=== PATIENT | female | born 1975 ===

== ENCOUNTER 2024-02-10 09:45 | Inpatient (IN) | payer OTHER ==
[2024-02-10 11:56] LABS: HEMATOCRIT 42.7 % (36.0-45.00); HEMOGLOBIN 14.7 g/dL (12.0-15.00); MEAN CELL VOLUME 86.7 fL (80.00-100.00); MEAN CORPUSCULAR HEMOGLOBIN 29.8 pg (27.00-32.0); MEAN CORPUSCULAR HGB CONC 34.4 g/dl (32.0-36.0); PLATELET COUNT 332 K/uL (150-450); RED BLOOD COUNT 4.93 M/uL (4.00-6.00); RED CELL DISTRIBUTION WIDTH 14.8 % (11.5-14.5)
[2024-02-10 11:58] LABS: PH,URINE 6.5 (5.0-8.0); URINE APPEARANCE Clear; URINE BILIRRUBIN Negative (NEGATIVE); URINE BLOOD Negative; URINE COLOR Yellow; URINE GLUCOSE Negative (NEGATIVE); URINE LEUKOCYTE Negative; URINE NITRATE Negative; URINE PROTEIN Negative (NEGATIVE); URINE UROBILINOGEN 0.2 E.U./dl
[2024-02-10 12:04] LABS: URINE BACTERIA 298.5 uL (0.0-1933); URINE EPITHELIAL CELLS 15.4 uL (0.0-38.8); URINE RBC 5.3 uL (0.0-20.8)
[2024-02-10 12:45] LABS: ALBUMIN 4.2 gm/dL (3.4-5.0); BILIRUBIN TOTAL 0.27 mg/dL (0.3-1.2); CALCIUM 9.4 mg/dL (8.5-10.1); CREATININE SERUM 0.59 mg/dL (0.55-1.02); GFR 107.89; GLOBULINA 3.1 G/DL (2.4-3.5); POTASSIUM 3.86 mEq/L (3.5-5.1); TOTAL PROTEIN 7.3 gm/dL (6.4-8.2)
[2024-02-10 12:55] LABS: INR 0.99; PARTIAL THROMBOPLASTIN TIME 31.9 SECONDS (22.0-34.0); PROTHROMBIN TIME 10.4 SECONDS (9.0-11.5)
[2024-02-19] MEDS ORDERED: CEFAZOLIN SODIUM 1,000 MG VIAL ONE ×2 (17:28→21:33)
[2024-02-19] MEDS ORDERED: THROMBIN,HU/FIBRINOGEN/CALCIUM 4 ML SYRINGE TOP ONE ×2 (18:07→18:45)
[2024-02-19] MEDS ORDERED: CEFAZOLIN SODIUM 1,000 MG VIAL IV ONE (18:15)
[2024-02-19] MEDS ORDERED: ONDANSETRON HCL 2 MG/ML VIAL IV PRN (19:30)
[2024-02-19] MEDS ORDERED: RINGERS SOLUTION,LACTATED 1,000 ML IV SCH (19:30)
[2024-02-19] MEDS ORDERED: MORPHINE SULFATE 4 MG/ML CARTRIDGE IV PRN (19:30)
[2024-02-19] MEDS ORDERED: OxyCODONE HCL/APAP UD (PERCOCET) PO PRN (19:30)
[2024-02-19] MEDS ORDERED: ONDANSETRON HCL 2 MG/ML VIAL ONE (20:21)
[2024-02-19] MEDS ORDERED: FAMOTIDINE/PF 20 MG/2 ML VIAL IV PUSH SCH (21:00)
[2024-02-19] MEDS ORDERED: SIMETHICONE 125 MG CAPSULE PO SCH (21:00)
[2024-02-19] MEDS ORDERED: CEFAZOLIN SODIUM 1,000 MG VIAL IV SCH (21:00)
[2024-02-19] MEDS ORDERED: FAMOTIDINE/PF 20 MG/2 ML VIAL ONE (21:34)
[2024-02-19 23:19] LABS: HEMATOCRIT 42.5 % (36.0-45.00); HEMOGLOBIN 14.2 g/dL (12.0-15.00); MEAN CELL VOLUME 86.1 fL (80.00-100.00); MEAN CORPUSCULAR HEMOGLOBIN 28.7 pg (27.00-32.0); MEAN CORPUSCULAR HGB CONC 33.4 g/dl (32.0-36.0); PLATELET COUNT 315 K/uL (150-450); RED BLOOD COUNT 4.93 M/uL (4.00-6.00); RED CELL DISTRIBUTION WIDTH 14.4 % (11.5-14.5)
[2024-02-19 23:29] LABS: ALBUMIN 3.6 gm/dL (3.4-5.0); CALCIUM 8.4 mg/dL (8.5-10.1); CREATININE SERUM 0.56 mg/dL (0.55-1.02); GFR 114.59; MAGNESIUM 1.7 mg/dL (1.8-2.4); PHOSPHOROUS 2.7 mg/dL (2.5-4.9); POTASSIUM 3.67 mEq/L (3.5-5.1)
[2024-02-20] MEDS ORDERED: KETOROLAC TROMETHAMINE 30 MG VIAL IM SCH
[2024-02-20 05:25] LABS: HEMATOCRIT 40.2 % (36.0-45.00); HEMOGLOBIN 13.7 g/dL (12.0-15.00); MEAN CELL VOLUME 86.7 fL (80.00-100.00); MEAN CORPUSCULAR HEMOGLOBIN 29.4 pg (27.00-32.0); PLATELET COUNT 303 K/uL (150-450); RED BLOOD COUNT 4.64 M/uL (4.00-6.00); RED CELL DISTRIBUTION WIDTH 14.1 % (11.5-14.5)
[2024-02-20 05:38] LABS: ALBUMIN 3.4 gm/dL (3.4-5.0); CALCIUM 8.3 mg/dL (8.5-10.1); CREATININE SERUM 0.6 mg/dL (0.55-1.02); GFR 105.82; MAGNESIUM 1.8 mg/dL (1.8-2.4); PHOSPHOROUS 2.9 mg/dL (2.5-4.9); POTASSIUM 3.6 mEq/L (3.5-5.1)
[2024-02-20] MEDS ORDERED: ENOXAPARIN SODIUM 40 MG/0.4 ML SYRINGE SUBCUTANEO SCH (09:00)
== END 2024-02-21 13:03 | disposition home or self-care (01) | DRG 355 ==
LOC: SURH 02-19 09:45 → O/R 02-19 12:02 → SURG 02-19 21:32 → SURH 02-20 17:27
PROVIDERS: Surgery; ADMIT Obstetrics & Gynecology Gynecologic Oncology; ATTEND Obstetrics & Gynecology Gynecologic Oncology
PROC: 0WQF0ZZ Repair Abdominal Wall, Open Approach (ICD-10-PCS; principal; 2024-02-19 11:00)
PROC: 0WJF4ZZ Inspection of Abdominal Wall, Percutaneous Endoscopic Approach (ICD-10-PCS; 2024-02-19 11:00)
DX: K43.0 Incisional hernia with obstruction, without gangrene (principal); K42.0 Umbilical hernia with obstruction, without gangrene